=== PATIENT | female | born 1930 | race Two or more races ===

== ENCOUNTER 2018-09-19 11:05 | Emergency (ER) | payer MEDICARE, OTHER ==
[2018-09-19 11:28] VITALS: BP 158/54
--- NOTE | 2018-09-19 12:18 | ED Physician Documentation ---
PD HPI UPPER EXT INJURY - Stated complaint Stated Complaint: GLF/RT ARM INJ - Chief complaint Chief Complaint: General - History obtained from History obtained from: Patient - History of Present Illness Location: Right, Wrist Type of injury: Fall (just tripped and lost balance, falling forward.) Timing - onset: Today Timing - details: Abrupt onset, Still present Improved by: Rest Worsened by: Moving, Palpating Associated symptoms: Swelling, Discolored (bruising distal forearm). No: Weakness, Numbness Contributing factors: Anticoagulated (plavix). No: Prior ortho surgery Similar symptoms before: Has not had sx before Review of Systems Cardiac: denies: Chest pain / pressure GI: denies: Abdominal Pain Neurologic: denies: Focal weakness, Numbness, Confused, Altered mental status, Headache, Head injury PD PAST MEDICAL HISTORY - Past Medical History Cardiovascular: None - Present Medications Home Medications: Ambulatory Orders Medication Instructions Recorded Confirmed Atorvastatin [Lipitor] 09/19/18 Citalopram [CeleXA] 09/19/18 Clopidogrel [Plavix] 09/19/18 Labetalol [Trandate] 09/19/18 Levothyroxine Sodium [Synthroid] 09/19/18 09/19/18 Losartan [Cozaar] 09/19/18 Naproxen 375 mg PO BID #20 tablet 09/19/18 Tramadol HCl 50 mg PO Q6H PRN #20 tablet 09/19/18 - Allergies Allergies/Adverse Reactions: Allergies Allergy/AdvReac Type Severity Reaction Status Date / Time codeine Allergy Unknown Verified 09/19/18 11:24 Sulfa (Sulfonamide Allergy Unknown Verified 09/19/18 11:24 Antibiotics) PD ED PE NORMAL - Vitals Vital signs reviewed: Yes - General General: Alert and oriented X 3, No acute distress, Well developed/nourished - HEENT HEENT: Atraumatic, Pharynx benign - Neck Neck: Supple, no meningeal sign, No adenopathy - Cardiac Cardiac: RRR, No murmur - Respiratory Respiratory: Clear bilaterally, Other (no chestwall tenderness) - Abdomen Abdomen: Soft, Non tender - Derm Derm: Normal color, Warm and dry - Extremities Extremities: No deformity, No tenderness to palpate, Other (right wrist with swelling and bruising and tender. Normal sensation, color, cap refill in fingers. ) - Neuro Neuro: Alert and oriented X 3, No motor deficit, Normal speech Results - Vitals Vitals: Oxygen O2 Source Room air - Rads (name of study) right wrist Radiology: Prelim report reviewed (impacted fracture distal radius with mild angulation/displacment.) Procedures - Splint (location) wrist Splint applied by: Tech Type of splint: Fiberglass, Short arm Other: Patient tolerated well, No complications, Neurovascular intact, Sling provided PD MEDICAL DECISION MAKING - ED course Complexity details: reviewed results, considered differential (exam c/w fracture and hematoma block done with marcaine with good effect. Patient without pain at time of xray and splinting. ), d/w patient Departure - Departure Disposition: 01 Home, Self Care Clinical Impression: Fall from slip, trip, or stumble Qualifiers: Encounter type: initial encounter Qualified Code(s): W01.0XXA - Fall on same level from slipping, tripping and stumbling without subsequent striking against object, initial encounter Colles' fracture Qualifiers: Encounter type: initial encounter Fracture type: closed Laterality: right Qualified Code(s): S52.531A - Colles' fracture of right radius, initial encounter for closed fracture Condition: Stable Record reviewed to determine appropriate education?: Yes Instructions: ED Fx Colles Wrist No Redu Requ Follow-Up: [facility] [Provider Group] Prescriptions: Naproxen 375 mg PO BID #20 tablet Tramadol HCl 50 mg PO Q6H PRN #20 tablet PRN Reason: Pain Comments: Keep the splint on and use the sling to help rest the wrist. Ice elevate and rest it often to reduce swelling. Call the orthopedic office for a follow-up appointment for next week. Naproxen anti-inflammatory twice daily for the next 7-10 days. Take it with food. Add Tylenol or tramadol if needed for pain. Discharge Date/Time: 09/19/18 14:03
[2018-09-19] MEDS ORDERED: ACETAMINOPHEN 325 MG TABLET PO STA (13:12)
--- NOTE | 2018-09-19 13:21 | XRAY Report ---
Reason: Trauma Procedure Date: 09/19/2018 Accession Number: [id number] / [id number] Procedure: XR - Wrist 4 View RT CPT Code: FULL RESULT: EXAM: RIGHT WRIST RADIOGRAPHY EXAM DATE: 09/19/2018 01:07 PM. CLINICAL HISTORY: Trauma. COMPARISON: None. TECHNIQUE: 3 views. FINDINGS: Impacted distal radial fracture with apex dorsal angulation of the distal fracture fragment and approximately 5 mm of foreshortening. Donor fragment near the ulnar styloid is also noted, likely ulnar styloid fracture. IMPRESSION: Impacted distal radial fracture likely with ulnar styloid fracture. RAD[facility]
== END 2018-09-19 14:03 | disposition home or self-care (01) ==
LOC: ED 11:05
DX: S52.531A Colles' fracture of right radius, initial encounter for closed fracture (principal); W01.10XA Fall on same level from slipping, tripping and stumbling with subsequent striking against unspecified object, initial encounter; Z79.01 Long term (current) use of anticoagulants
CPT/HCPCS: 29125; 73110; 99283; A9270

== ENCOUNTER 2018-11-03 12:48 | Outpatient (CLI) | payer MEDICARE, OTHER ==
[2018-11-03] MEDS ORDERED: GADOBUTROL 10 MMOL/10 ML VIAL IVP ONE ×2 (14:03)
--- NOTE | 2018-11-03 16:33 | MRI Report ---
Reason: ABNORMAL CT Procedure Date: 11/03/2018 Accession Number: [id number] / [id number] Procedure: MRI - Brain W/WO CPT Code: FULL RESULT: EXAM: MRI BRAIN WITHOUT AND WITH CONTRAST EXAM DATE: 11/03/2018 02:12 PM. CLINICAL HISTORY: ABNORMAL CT. COMPARISON: None available at the time of this review. TECHNIQUE: Multiplanar, multisequence T1-weighted and fluid-sensitive MR sequences of the brain were performed. Sequences optimized for routine evaluation. Other: None. IV Contrast: 6 cc Gadavist. Findings: Relevant images are indicated (image number, series number). There is no acute/subacute ischemic change in the brain. 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 There is severe periventricular, subcortical white matter disease present, with moderate/marked dense pontine white matter disease present. Postcontrast imaging negative. Punctate hemosiderin deposition right cerebellum, right aspect of the midbrain, mild/moderate scattered hemosiderin deposition supratentorial brain including bilateral thalami. Basal cisterns patent. Orbital contents negative, patient post bilateral lens surgery. Paranasal sinuses, mastoid air cells are unremarkable. Moderate brain atrophy. There is marked midbrain atrophy. Partial empty sella. Craniocervical junction unremarkable. Partly visualized cervical cord negative. Multilevel upper cervical spine spondylosis. No abnormal enhancement of the brain, meninges. Impressions: 1. No acute/subacute ischemic change in the brain. 2. Moderate generalized brain atrophy. Marked midbrain atrophy. 3. Marked/severe dense white matter disease most likely related to chronic small vessel ischemic disease. Superimposed scattered areas of hemosiderin deposition likely related to small vessel angiopathy, potentially amyloid disease. Correlate with patient risk factors. 4. Postcontrast imaging negative. RADIA
== END 2018-11-03 12:49 | disposition home or self-care (01) ==
LOC: DI 12:48
PROVIDERS: ATTEND Internal Medicine
DX: G31.9 Degenerative disease of nervous system, unspecified (principal); R90.82 White matter disease, unspecified
CPT/HCPCS: 70553; A9585

== ENCOUNTER 2018-11-12 10:35 | Outpatient (CLI) | payer MEDICARE, OTHER ==
[2018-11-12 11:14] LABS: BASOPHILS # (AUTO) 0.1 10^3/uL (0.0-0.1); BASOPHILS % (AUTO) 0.8 %; EOSINOPHILS # (AUTO) 0.2 10^3/uL (0.0-0.7); EOSINOPHILS % (AUTO) 2.6 %; HGB - HEMOGLOBIN 13.5 g/dL (12.0-16.0); LYMPHOCYTES # (AUTO) 1.2 10^3/uL (1.5-3.5); MEAN CORPUSCULAR HEMOGLOBIN 31.5 pg (27.0-31.0); MEAN CORPUSCULAR HGB CONC 33.5 g/dL (32.0-36.0); MEAN CORPUSCULAR VOLUME 94.1 fL (81.0-99.0); MEAN PLATELET VOLUME 7.9 fL (7.9-10.8); MONOCYTES # (AUTO) 0.5 10^3/uL (0.0-1.0); MONOCYTES % (AUTO) 7.8 %; NEUTROPHILS # (AUTO) 4.9 10^3/uL (1.5-6.6); NEUTROPHILS % (AUTO) 70.8 %; PLT - PLATELET COUNT 238 10^3/uL (130-450); RED BLOOD COUNT 4.29 10^6/uL (4.20-5.40); RED CELL DISTRIBUTION WIDTH 13.1 % (12.0-15.0); WHITE BLOOD COUNT 6.9 x10^3/uL (4.8-10.8)
[2018-11-12 11:32] LABS: ALBUMIN 4.3 g/dL (3.2-5.5); ALBUMIN/GLOBULIN RATIO 1.5 (1.0-2.2); ALKALINE PHOSPHATASE 83 IU/L (42-121); ALT ALANINE AMINOTRANSFERASE 16 IU/L (10-60); AST ASPARTATE AMINOTRANSFERASE 26 IU/L (10-42); BILIRUBIN,TOTAL 0.9 mg/dL (0.2-1.0); BUN - BLOOD UREA NITROGEN 21 mg/dL (6-20); CALCIUM 9.1 mg/dL (8.5-10.3); CARBON DIOXIDE - CO2 27 mmol/L (21-32); CHLORIDE 103 mmol/L (101-111); CHOL/HDL RATIO 2.4 (<4.4); CHOLESTEROL 151 mg/dL; CK- CREATINE KINASE 124 IU/L (22-269); CREATININE 0.6 mg/dL (0.4-1.0); GFR - MDRD 94 (>89); GLUCOSE 110 mg/dL (70-100); HDL CHOLESTEROL 64 mg/dL; LDL CHOLESTEROL,CALCULATED 69 mg/dL; LDL/HDL RATIO 1.1 (<4.4); SODIUM 136 mmol/L (135-145); TOTAL PROTEIN 7.2 g/dL (6.7-8.2); VLDL CHOLESTEROL 18 mg/dL
[2018-11-12 11:48] LABS: BILIRUBIN,URINE NEGATIVE (NEGATIVE); GLUCOSE, URINE (UA) NEGATIVE (NEGATIVE); KETONES,URINE (UA) NEGATIVE (NEGATIVE); LEUKOCYTE ESTERASE, URINE SMALL (NEGATIVE); NITRITE,URINE NEGATIVE (NEGATIVE); OCCULT BLOOD,URINE TRACE-INTA (NEGATIVE); PROTEIN,URINE NEGATIVE (NEGATIVE); UROBILINOGEN,URINE 0.2 (NORMAL) E.U./dL (NORMAL)
[2018-11-12 11:52] LABS: CLARITY,URINE CLEAR (CLEAR)
[2018-11-12 12:28] LABS: BACTERIA,URINE Rare /HPF (None Seen); RBC,URINE 0-5 /HPF (0-5); SQUAMOUS EPITHELIAL CELL,UR RARE Squamous (<= Few); WBC CLUMPS,URINE PRESENT
[2018-11-12 12:49] LABS: THYROID STIMULATING HORMONE 2.2 uIU/mL (0.34-5.60)
== END 2018-11-12 10:36 | disposition home or self-care (01) ==
LOC: LAB 10:35
PROVIDERS: ATTEND Internal Medicine
DX: F32.9 Major depressive disorder, single episode, unspecified (principal); Z79.899 Other long term (current) drug therapy; E03.9 Hypothyroidism, unspecified; I10 Essential (primary) hypertension; E55.9 Vitamin D deficiency, unspecified; C50.919 Malignant neoplasm of unspecified site of unspecified female breast; I25.10 Atherosclerotic heart disease of native coronary artery without angina pectoris; R41.3 Other amnesia
CPT/HCPCS: 36415; 80053; 80061; 81001; 81003; 81599; 82550; 82607; 83721; 84443; 85025; 86592; 87086